=== PATIENT | female | born 1985 ===

== ENCOUNTER 2019-08-24 08:00 | Day surgery (SDC) | payer OTHER ==
--- NOTE | 2019-08-24 07:28 | PCM.PREANE ---
Preanesthetic Assessment - Procedure Proposed Procedure: suction d and c - Anesthesia/Transfusion/Family Hx Anesthesia History: Prior Anesthesia Reaction Type of Anesthesia Reaction: Excessive Nausea/Vomiting Family History of Anesthesia Reaction: No Transfusion History: No Prior Transfusion(s) - Review of Systems General: No Symptoms Pulmonary: No Symptoms Cardiovascular: No Symptoms Gastrointestinal: No Symptoms Neurological: No Symptoms Other: Reports: Depression (past) - Physical Assessment NPO Status Date: 08/23/19 NPO Status Time: 21:00 Vital Signs: 120/75 91 97% 99.2 16 Height: 5 ft 5 in Weight: 98.3 kg ASA Class: 2 Mental Status: Alert & Oriented x3 Airway Class: Mallampati = 1 Dentition: Reports: Broken Tooth/Teeth, Missing Tooth/Teeth Thyro-Mental Finger Breadths: 3 Mouth Opening Finger Breadths: 3 ROM/Head Extension: Full Lungs: Clear to Auscultation, Normal Respiratory Effort Cardiovascular: Regular Rate, Regular Rhythm - Allergies Allergies/Adverse Reactions: Allergies Allergy/AdvReac Type Severity Reaction Status Date / Time hydrocodone Allergy Vomiting Verified 08/19/16 13:17 CONTINUOUS PROCESS TANNER ROTARY DRUM - Blood Blood Available: No - Acknowledgements Anesthesia Type Planned: General Anesthesia Pt an Appropriate Candidate for the Planned Anesthesia: Yes Alternatives and Risks of Anesthesia Discussed w Pt/Guardian: Yes Pt/Guardian Understands and Agrees with Anesthesia Plan: Yes PreAnesthesia Questionnaire Cardiovascular History: Reports: None Respiratory History: Reports: Other (See Below) (reactive airway disease) Gastrointestinal History: Reports: GERD (occasionally) Musculoskeletal History: Reports: None Psychiatric History: Reports: Depression (in the past) Endocrine/Metabolic History: Reports: Obesity/BMI 30+ - Past Surgical History HEENT Surgical History: Reports: Adenoidectomy, Oral Surgery Musculoskeletal Surgical History: Reports: Other (See Below) (right arm fx) - History Comment History Comment: no home meds - SUBSTANCE USE Smoking Status *Q: Current Every Day Smoker Tobacco Use Within Last Twelve Months: Cigarettes Second Hand Smoke Exposure: Yes Days Per Week of Alcohol Use: 0 Recreational Drug Use History: No - CURRENT (IN HOUSE) MEDS Current Meds: Current Medications Lactated Ringer's (Ringers, Lactated) 1,000 mls @ 125 mls/hr IV ASDIRECTED MARVEL Stop: 08/24/19 23:00 Lidocaine/Sodium Bicarbonate (Buffered Lidocaine 1% In Ns 8.4%) 0.25 ml IDERM ONETIME PRN PRN Reason: Prior to IV Start Stop: 08/24/19 18:00 Sodium Chloride (Saline Flush) 10 ml FLUSH ASDIRECTED PRN PRN Reason: Keep Vein Open Stop: 08/24/19 18:00 Discontinued Medications Fentanyl (Sublimaze) Confirm Administered Dose 250 mcg .ROUTE .STK-MED ONE Stop: 08/24/19 07:11 Lidocaine HCl (Xylocaine-Mpf 1%) Confirm Administered Dose 4 mls @ as directed .ROUTE .STK-MED ONE Stop: 08/24/19 07:11 Midazolam HCl (Versed 1 Mg/Ml) Confirm Administered Dose 2 mg .ROUTE .STK-MED ONE Stop: 08/24/19 07:11 Ondansetron HCl (Zofran) Confirm Administered Dose 4 mg .ROUTE .STK-MED ONE Stop: 08/24/19 07:11 Propofol (Diprivan 20 Ml) Confirm Administered Dose 200 mg .ROUTE .STK-MED ONE Stop: 08/24/19 07:11
[~2019-08-24 08:00] MED LIST: Albuterol 0.083% 2.5 MG/3 ML Neb Soln NEB ONE; Lactated Ringers 1,000 ML IV SCH; Lidocaine 1% 4 ML ONE; Lidocaine 1%/Sod Bicarbonate in NS 8.4% 1 ML Syringe IDERM PRN; Midazolam 1 MG/ML 2 ML SDV ONE; Ondansetron 4 MG/2 ML SDV ONE; Propofol 200 MG/20 ML SDV ONE; Scopolamine 1.5 MG Transdermal Patch TOP ONE; Sodium Chloride 0.9% 10 ML Syringe FLUSH PRN; ceFAZolin 1 GM Vial ONE; fentaNYL 250 MCG/5 ML SDV ONE
[2019-08-24] MEDS ORDERED: Ketorolac 30 MG/ML SDV ONE (08:03)
[2019-08-24] MEDS ORDERED: Ondansetron 4 MG/2 ML SDV IVPUSH PRN ×2 (08:07→08:20)
[2019-08-24] MEDS ORDERED: fentaNYL 100 MCG/2 ML SDV IVPUSH PRN (08:07)
[2019-08-24] MEDS ORDERED: Dexamethasone 4 MG/ML 5 ML MDV ONE (08:13)
--- NOTE | 2019-08-24 08:25 | PCM.OPNOTE ---
- General Post-Op/Procedure Note Date of Surgery/Procedure: 08/24/19 Operative Procedure(s): Dilation and Suction Curettage Findings: Uterus sounded to 10 cm. No adnexal nausea noted uterus is anterior, soft. The cervix was essentially closed. Pre Op Diagnosis: Miscarriage Post-Op Diagnosis: Same Anesthesia Technique: General LMA Primary Surgeon: Felipe Ramires Secondary Surgeon: Ester Bella Anesthesia Provider: Yuni Stiles Pathology: Endometrial curettings Fluid Replacement, Intraop: 600 EBL in mLs: 20 Complications: None Condition: Good Free Text/Narrative:: Surgery duration: 5 minutes The patient was taken to the operating room and placed in a supine position operating table. She received 2 g of Ancef preoperatively for infection prophylaxis and had sequential compression stockings in place for DVT prophylaxis. After adequate general LMA anesthesia patient was placed in a dorsal lithotomy position. A weighted speculum was placed in the vagina. Cervix is found to be dilated to approximately closed. Uterus was sounded to approximately 10 cm. It was found to be anterior and mid position. Cervix was dilated to approximately 17 [place] size. An 7 mm suction curette was then introduced in routine fashion the endometrial cavity was evacuated. Moderate amount tissue was obtained. Findings consistent with products of conception. A medium size sharp curet was introduced and very careful fashion the endometrial cavity was curetted. It was be clear of any further tissue. The suction curet was then reintroduced and small and blood was removed. No further tissue was removed. This point the D&C was discontinued. The single-toothed tenaculum used to stabilize the anterior lip the cervix was removed. Blood was removed from the vagina with a stick sponge and the weighted speculum was removed from the vagina. The patient was awakened from LMA anesthesia. The patient was discharged from the operating room in good condition.
--- NOTE | 2019-08-24 08:35 | PCM.POSTAN ---
POST ANESTHESIA ASSESSMENT - MENTAL STATUS Mental Status: Alert, Oriented - VITAL SIGNS Vital Signs: Last Vital Signs Temp 98.4 F 08/24/19 08:30 Pulse 85 08/24/19 08:30 Resp 14 08/24/19 08:30 BP 109/64 08/24/19 08:30 Pulse Ox 97 08/24/19 08:30 - RESPIRATORY Respiratory Status: Respiratory Rate WNL, Airway Patent, O2 Saturation Stable, Supplemental Oxygen - CARDIOVASCULAR CV Status: Pulse Rate WNL, Blood Pressure Stable - GASTROINTESTINAL GI Status: No Symptoms - PAIN Pain Score: 0 - POST OP HYDRATION Hydration Status: Adequate & Stable
--- NOTE | 2019-08-24 09:55 | PCM48HPAN ---
Post Anesthesia Note - EVALUATION WITHIN 48HRS OF ANESTHETIC Vital Signs in Normal Range: Yes Patient Participated in Evaluation: Yes Respiratory Function Stable: Yes Airway Patent: Yes Cardiovascular Function Stable: Yes Hydration Status Stable: Yes Pain Control Satisfactory: Yes Nausea and Vomiting Control Satisfactory: Yes Mental Status Recovered: Yes (sitting up in bed- denies pain) Vital Signs: Last Vital Signs Temp 98.4 F 08/24/19 09:10 Pulse 74 08/24/19 09:41 Resp 16 08/24/19 09:41 BP 113/64 08/24/19 09:41 Pulse Ox 95 08/24/19 09:41
[2019-08-24] MEDS ORDERED: Ketorolac 30 MG/ML SDV IVPUSH SCH (14:00)
== END 2019-08-24 10:08 | disposition home or self-care (01) ==
LOC: JD.SDS 08:00
PROVIDERS: ATTEND Obstetrics & Gynecology
DX: O02.1 Missed abortion (principal); K21.9 Gastro-esophageal reflux disease without esophagitis; F32.9 Major depressive disorder, single episode, unspecified; F17.210 Nicotine dependence, cigarettes, uncomplicated; Z88.5 Allergy status to narcotic agent
CPT/HCPCS: 59820; A9270; J0690; J1100; J1885; J2001; J2250; J2405; J2704; J3010; J7120; 01965